=== PATIENT | male | born 1995 | race Caucasian/White ===

== ENCOUNTER 2017-02-04 23:16 | Emergency (ER) | payer OTHER ==
[2017-02-04 23:25] VITALS: BP 134/88; PULSE 77; RESP 18; TEMP 98.2; O2SAT 98
--- NOTE | 2017-02-05 00:32 | C.PDOC ---
History Of Present Illness 21 y/o male c/o pain to the right rib while laying down that occurred few minutes [employer]. Pain is worse with inspiration. Took no medication for pain. Denies trauma, SOB, URI symptoms, palpitations, diaphoresis, or any other complaints. Time Seen by Provider: 02/04/17 23:32 Chief Complaint (Nursing): Chest Pain History Per: Patient History/Exam Limitations: no limitations Onset/Duration Of Symptoms: Days Current Symptoms Are (Timing): Still Present Severity: Mild Quality: "Pain" Modifying Factors: None Exacerbating Factors: Deep Breathing (Inspiration) Recent travel outside of the [place]: No Additional History Per: Patient Past Medical History Reviewed: Historical Data, Nursing Documentation, Vital Signs Vital Signs: Last Vital Signs Temp 98.2 F 02/04/17 23:20 Pulse 77 02/04/17 23:20 Resp 18 02/04/17 23:20 BP 134/88 02/04/17 23:20 Pulse Ox 98 02/05/17 01:55 Family History: States: Unknown Family Hx - Social History Hx Tobacco Use: Yes Hx Alcohol Use: Yes Hx Substance Use: No - Immunization History Hx Tetanus Toxoid Vaccination: No Hx Influenza Vaccination: No Hx Pneumococcal Vaccination: No Review Of Systems Constitutional: Negative for: Fever Cardiovascular: Positive for: Chest Pain (Right rib pain). Negative for: Palpitations Respiratory: Negative for: Cough, Shortness of Breath, SOB with Excertion Psych: Negative for: Anxiety Physical Exam - Physical Exam Appears: Non-toxic, No Acute Distress Skin: Warm, Dry Head: Atraumatic, Normacephalic Eye(s): bilateral: Normal Inspection, PERRL Neck: Supple Chest: Symmetrical, Tenderness (To the right mid-intercoastal area), No Other ( No contusion, no erythema, no rash.) Cardiovascular: Rhythm Regular Respiratory: Normal Breath Sounds, No Rales, No Rhonchi, No Wheezing Gastrointestinal/Abdominal: Soft, No Tenderness Neurological/Psych: Oriented x3, Normal Speech, Normal Cognition ED Course And Treatment O2 Sat by Pulse Oximetry: 98 (RA) Pulse Ox Interpretation: Normal - Radiology CXR: Interpreted by Me, Viewed By Me CXR Interpretation: Yes: No Acute Disease. No: Pnemothorax Progress Note: Impression: 21 y/o male c/o pain to the right rib worse with inspiration [employer]. Plans: CXR, Motrin, Reassess. CXR normal. Patient is currently in no acute distress and is improving with the rib pain. Patient is without SOB. Patient advised to continue with pain meds and to follow up with PMD for further evaluations and to return if symptoms worsens. Disposition Counseled Patient/Family Regarding: Diagnosis, Need For Followup, Rx Given - Disposition Referrals: [facility] [Outside] Disposition: HOME/ ROUTINE Disposition Time: 00:29 Condition: STABLE Additional Instructions: Please take motrin as directed Follow up in clinic Return to ER if worse Prescriptions: Ibuprofen [Motrin] 600 mg PO Q6H #20 tab Instructions: Chest Wall Pain (ED) Forms: [facility] (T[place]isian) - Clinical Impression Clinical Impression: Right-sided chest wall pain - Scribe Statement The provider has reviewed the documentation as recorded by the Scribmarcus villavicencio All medical record entries made by the Scribe were at my direction and personally dictated by me. I have reviewed the chart and agree that the record accurately reflects my personal performance of the history, physical exam, medical decision making, and the department course for this patient. I have also personally directed, reviewed, and agree with the discharge instructions and disposition.
--- NOTE | 2017-02-05 09:51 | RAD ---
HISTORY: right chest pain COMPARISON: None available. TECHNIQUE: Chest PA and lateral FINDINGS: LUNGS: No focal consolidation. Please note that chest x-ray has limited sensitivity for the detection of pulmonary masses. PLEURA: No significant pleural effusion identified. No definite pneumothorax . CARDIOVASCULAR: The cardiomediastinal silhouette appears within normal limits of size. OSSEOUS STRUCTURES: No acute osseous abnormality identified. VISUALIZED UPPER ABDOMEN: Elevation of the right hemidiaphragm. OTHER FINDINGS: None. IMPRESSION: No focal consolidation, significant pleural effusion, or definite pneumothorax identified. Elevation of the right hemidiaphragm.
== END 2017-02-05 00:41 | disposition home or self-care (01) ==
LOC: SUPCPDRO 23:16 → C.ER 23:16
DX: R07.89 Other chest pain (principal)